=== PATIENT | female | born 1980 | race Two or more races ===

== ENCOUNTER 2016-10-06 19:44 | Emergency (ER) | payer BC, OTHER ==
[~2016-10-06] VITALS: Ht 142.2 cm; Wt 81.6 kg
[2016-10-06 19:55] VITALS: BP 143/80
[2016-10-06] MEDS ORDERED: TRAM-29 PO (20:53)
[2016-10-06] MEDS ORDERED: METH-37 PO (20:53)
--- NOTE | 2016-10-06 20:53 | PHYS DOC ---
Past Medical History Past Medical History: No Pertinent History Past Surgical History: Cholecystectomy, Tubal ligation Additional Information: nonsmoker Alcohol Use: None Drug Use: None Adult General Chief Complaint Chief Complaint: LOWER EXT PAIN HPI HPI Patient is a 36 year old female who presents with left leg pain that began after lifting heavy boxes at work yesterday. She denies fall or other injury. The pain radiates from the left hip to the left lower back. She denies any focal weakness or numbness. She has not had any incontinence or saddle anesthesia. She denies nausea, vomiting, abdominal pain, or urinary symptoms. She has a history of intermittent problems with her back. She has taken ibuprofen for the pain today without relief. Her PCP is Dr. Irvin. Review of Systems Review of Systems Constitutional: Denies fever or chills. [] GI: Denies abdominal pain, nausea, vomiting, bloody stools or diarrhea. [] : Denies dysuria, hematuria or urinary frequency. [] Musculoskeletal: Denies joint pain. Reports left leg and left-sided low back pain Integument: Denies rash or skin lesions. [] Neurologic: Denies headache, focal weakness or sensory changes. Denies incontinence or saddle anesthesia. Allergies Allergies Allergies Coded Allergies Type Severity Reaction Last Updated Verified metoclopramide Allergy Unknown 09/27/14 No prochlorperazine Allergy Unknown 09/27/14 No Physical Exam Physical Exam Constitutional: Well developed, well nourished, no acute distress, non-toxic appearance. [] HENT: Normocephalic, atraumatic, oropharynx moist. [] Eyes: PERRLA, EOMI, conjunctiva normal, no discharge. [] Neck: Normal range of motion, no tenderness, supple, no stridor. [] Cardiovascular: Heart rate regular rhythm, no murmur. [] Lungs & Thorax: Bilateral breath sounds clear to auscultation without wheezes, rales, or rhonchi. [] Abdomen: Bowel sounds normal, soft, no tenderness, no masses, no pulsatile masses. [] Skin: Warm, dry, no erythema, no rash. [] Back: No midline tenderness, no CVA tenderness. Left lumbar paraspinal muscle tenderness. Extremities: Left hip tenderness, ROM intact, no edema. Distal pulses equal bilaterally. Less than 2 second capillary refill in the toes distally. Light touch sensation intact and equal bilaterally both proximally and distally. Neurologic: Alert and oriented X 3, normal motor function, normal sensory function, no focal deficits noted. [] Psychologic: Affect normal, judgement normal, mood normal. [] Current Patient Data Vital Signs Vital Signs Date Time Temp Pulse Resp B/P Pulse Ox O2 Delivery O2 Flow Rate FiO2 10/06/16 19:55 97.7 82 16 100 Room Air 97.7 EKG EKG [] Radiology/Procedures Radiology/Procedures [] Course & Med Decision Making Course & Med Decision Making Pertinent Labs and Imaging studies reviewed. (See chart for details) [] Dragon Disclaimer Dragon Disclaimer This electronic medical record was generated, in whole or in part, using a voice recognition dictation system. Departure Departure Impression: Primary Impression: Low back strain Disposition: HOME, SELF-CARE Condition: STABLE Referrals: VIVIANA IRVIN MD (PCP) Patient Instructions: Back Pain, Adult, [id number] Additional Instructions: Please take the prescribed medications as directed. Do not drive or operate heavy machinery while taking pain medication or muscle relaxers. To help with your pain, apply heat, practice gentle stretching, and practice light massage. Please avoid any bending or lifting activities, as this will further strain your back. Please follow-up with your primary care doctor within the next week. Return to the emergency department if you have any new or concerning symptoms. Scripts Methocarbamol (Robaxin)500 Mg [id number] Mg PO QID #20 TAB Prov:YOHANNES JEFFRIES 10/06/16 Tramadol Hcl (Ultram)50 Mg [id number] Mg PO Q6H PRN PAIN #20 TAB Prov:YOHANNES JEFFRIES 10/06/16 Problem Qualifiers Primary Impression: Low back strain Encounter type: initial encounter Qualified Code: S39.012A - Strain of muscle, fascia and tendon of lower back, initial encounter YOHANNES JEFFRIES Oct 06, 2016 20:53
[2016-10-06] MEDS ORDERED: TRAMADOL 50 MG TABLET. PO ONE (21:00)
== END 2016-10-06 21:00 | disposition home or self-care (01) ==
LOC: ER 19:44
DX: S39.012A Strain of muscle, fascia and tendon of lower back, initial encounter (principal); Z90.49 Acquired absence of other specified parts of digestive tract; Z88.8 Allergy status to other drugs, medicaments and biological substances; X58.XXXA Exposure to other specified factors, initial encounter; Y93.89 Activity, other specified; Y92.69 Other specified industrial and construction area as the place of occurrence of the external cause; Y99.0 Civilian activity done for income or pay
CPT/HCPCS: 99283